=== PATIENT | male | born 1985 | race Two or more races ===

== ENCOUNTER 2020-04-12 09:18 | Outpatient (REF) | payer MEDICAID, SELFPAY | END 2020-04-12 09:19 | disposition home or self-care (01) | LOC: HO.LAB 09:18 | PROVIDERS: Visit Provider Internal Medicine | DX: Z20.828 Contact with and (suspected) exposure to other viral communicable diseases (principal) | CPT/HCPCS: C9803; U0003 ==

== ENCOUNTER 2020-05-10 06:43 | Outpatient (REF) | payer SELFPAY | END 2020-05-10 06:44 | disposition home or self-care (01) | LOC: HO.LAB 06:43 | PROVIDERS: Visit Provider Internal Medicine | DX: Z20.828 Contact with and (suspected) exposure to other viral communicable diseases (principal) | CPT/HCPCS: C9803; U0003 ==

== ENCOUNTER 2021-12-17 11:44 | Emergency (ER) | payer OTHER, SELFPAY ==
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
[2021-12-17 14:34] VITALS: BP 146/91; PULSE 72; RESP 18; TEMP 36.6; O2SAT 99; BMI 26.6
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
== END 2021-12-17 16:38 | disposition home or self-care (01) ==
PROVIDERS: Emergency Provider Emergency Medicine
DX: S39.012A Strain of muscle, fascia and tendon of lower back, initial encounter (principal); R07.89 Other chest pain; V43.52XA Car driver injured in collision with other type car in traffic accident, initial encounter; Y93.9 Activity, unspecified; Y92.410 Unspecified street and highway as the place of occurrence of the external cause; Y99.9 Unspecified external cause status; Z79.899 Other long term (current) drug therapy
CPT/HCPCS: 71046; 72100; 99283

== ENCOUNTER 2024-01-19 14:40 | Outpatient (AMB) | payer BC, SELFPAY ==
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
[2024-01-19 14:41] VITALS: BP 120/80; PULSE 86; O2SAT 98; BMI 27.3
== END 2024-01-19 15:20 | disposition home or self-care (01) ==
PROVIDERS: Visit Provider Physician Assistant
DX: T75.4XXA Electrocution, initial encounter (principal)
CPT/HCPCS: 93000; 99203

== ENCOUNTER → 2024-07-15 16:12 | Outpatient (BNVA) | payer BC, SELFPAY | PROVIDERS: PCP Internal Medicine | DX: J45.20 Mild intermittent asthma, uncomplicated (principal); F41.9 Anxiety disorder, unspecified; Z91.09 Other allergy status, other than to drugs and biological substances; Z28.21 Immunization not carried out because of patient refusal | CPT/HCPCS: 90471; 96127 ==

== ENCOUNTER 2024-07-28 09:55 | Outpatient (REF) | payer BC, SELFPAY ==
[2024-07-28 10:14] LABS: MANUAL DIFF FLAG NO
[2024-07-28 11:05] LABS: Basophils Absolute Auto 0.1 X10*3/uL (0.0-0.2); Basophils Percent Auto 0.8 % (0-2); Eosinophils Absolute Auto 0.2 X10*3/uL (0.0-0.4); Hematocrit 42.3 % (42.0-52.0); Hemoglobin 14.6 g/dl (14.0-18.0); Imm Gran Abs Auto 0.06 X10*3/uL (0.00-0.03); Imm Gran Pct Auto 0.8 % (0.0-0.4); Lymphocytes Absolute Auto 2.5 X10*3/uL (1.2-4.9); Lymphocytes Percent Auto 33.5 % (20-40); Mean Corpuscular HGB Conc 34.5 g/dl (31.0-36.0); Mean Corpuscular Hemoglobin 29.9 pg (27.0-33.0); Mean Corpuscular Volume 86.5 fL (80.0-98.0); Mean Platelet Volume 10.2 fL (9.4-12.4); Monocytes Absolute Auto 0.6 X10*3/uL (0.1-1.2); Monocytes Percent Auto 8.2 % (2-11); Neutrophils Percent Auto 53.7 % (45-73); Platelet Count 316 X10*3/uL (160-400); Red Blood Count 4.89 X10*6/uL (4.60-5.80); Red Cell Distribution Width 13.2 % (11.0-16.0); White Blood Count 7.4 X10*3/uL (4.8-10.8)
[2024-07-28 11:12] LABS: Appearance Urine Clear; Color Urine Yellow; Glucose Urine UA Negative (Negative); Leukocyte Esterase Urine Negative (Negative); Nitrite Urine Negative (Negative); Specific Gravity - Urine >= 1.030 (1.005-1.025); Urine Blood Negative (Negative); Urine Ketones Negative (Negative); Urine Protein Negative (Neg-Trace)
[2024-07-28 11:40] LABS: Alanine Aminotransferase 37 U/L (0-40); Albumin Level 4.9 g/dL (3.5-5.0); Alkaline Phosphatase 74 U/L (39-117); Anion Gap 13 (12-20); Aspartate Amino Transferase 29 U/L (5-37); Bilirubin Total 0.5 mg/dL (0.0-1.0); Blood Urea Nitrogen 17 mg/dL (9-16); Calcium 9.8 mg/dL (8.4-10.2); Carbon Dioxide 26 mmol/L (22-29); Chloride 106 mmol/L (96-108); Cholesterol 215 mg/dL (<200); Estimated Glomerular Filt Rate > 60; Glucose Fasting 96 mg/dL (60-99); HDL Cholesterol 42 mg/dL (>40); LDL Cholesterol Calculated 141 mg/dL (<100); Potassium 3.7 mmol/L (3.3-5.1); Sodium 141 mmol/L (135-145); Total Protein 8.9 g/dL (6.5-8.0); Triglycerides 161 mg/dL (<150)
[2024-07-28 11:59] LABS: TSH reflex Free T4 0.86 uIU/mL (0.32-4.0)
== END 2024-07-28 09:56 | disposition home or self-care (01) ==
LOC: HO.LAB 09:55
DX: Z00.00 Encounter for general adult medical examination without abnormal findings (principal); J45.909 Unspecified asthma, uncomplicated; Z91.09 Other allergy status, other than to drugs and biological substances; Z13.29 Encounter for screening for other suspected endocrine disorder; Z13.228 Encounter for screening for other metabolic disorders; Z13.220 Encounter for screening for lipoid disorders
CPT/HCPCS: 36415; 80053; 80061; 81003; 82306; 84443; 85025

== ENCOUNTER 2024-07-29 15:19 | Outpatient (AMB) | payer BC, SELFPAY ==
[2024-07-29 15:20] VITALS: BP 120/72; PULSE 78; O2SAT 97; BMI 27.5
--- NOTE | 2024-07-29 15:20 | A.OFFPC_ITS ---
Vital Signs 07/29/24 15:20 Height 5 ft 6 in Weight 170 lb 8 oz BMI 27.5 BP 120/72 Blood Pressure Location Lt brachial Position Sitting Pulse 78 Pulse Source Pulse Oximeter Pulse Oximetry (%) 97 Oxygen Delivery Method Room Air Intake Visit Reasons: annual exam Medical Registrar Required: No Accompanied by: Self / Same As Patient Allergies SEASONAL ALLERGIES Allergy (Intermediate, Uncoded 08/01/24 10:37) RASH Tobacco use date assessed: 07/29/24 Dental Screening Dental Screen Date: 07/29/24 Did you have a dental visit in the last 12 months?: No Did you have a dental problem in the last 6 months where you did not have access to dental care?: No Was dental information given to patient?: Patient has dentist HPI annual exam HPI Details Dentist: not in a while Eye: not in a while Snellen: Right: Left: Corrected vision: glasses STI screening: Colonoscopy:n/a Pap Smer:n/a PHQ-9:n/a Flu: declines COVID:declines Tdap: up to date Diet: regular Exercise: planning on starting back. Reports having a gym membership that he is not using The patient is a 39-year-old male who was presenting for an annual evaluation Recent labs completed-here to discuss results Reports that he is doing well. He denies shortness of breath, chest pain, heart palpitation, or dizziness He denies abdominal pain or change in bowel habits He denies any urinary symptoms [facility] Medical History (Updated 07/29/24 @ 16:21 by CHET Sarabia) Electrical shock of hand Asthma Environmental allergies Family History Brother Asthma Sister Asthma Mother Asthma Social History Housing: Apartment Patient Tobacco Use Status: Former Tobacco user e-Cigarette/Vaping Use: Former Use Date or number of years quit: 4 months ago service: No Current occupational status: employed Cognitive needs: No Hearing needs: No Vision needs: No Questionnaire PHQ-9 Over the last 2 weeks, how often have you been bothered by any of the following problems? 1. Little interest or pleasure in doing things: not at all 2. Feeling down, depressed, or hopeless: not at all 3. Trouble falling or staying asleep, or sleeping too much: not at all 4. Feeling tired or having little energy: not at all 5. Poor appetite or overeating: not at all 6. Feeling bad about yourself - or that you are a failure or have let yourself or your family down: not at all 7. Trouble concentrating on things, such as reading the newspaper or watching television: not at all 8. Moving or speaking so slowly that other people could have noticed. Or the opposite - being so fidgety or restless that you have been moving around a lot more than usual: not at all 9. Thoughts that you would be better off or of hurting yourself in some way: not at all Total score: 0 Depression Screening Interpretation: Negative Depression Screening Done: Yes 22428 - PHQ-9 Billing: Yes Source: Developed by Drs. Rik Elizabeth, Batsheva Meza, Calvin Patel and colleagues, with an educational jessica from [employer]. Thrive Questionnaire Date Thrive assessed: 07/29/24 I am a: Patient What is your living situation today?: I have a steady place to live Within the past 12 months, did the food you bought not last and you didn't have the money to get more?: Never true Within the past 12 months, did you worry whether your food would run out before you got money to buy more?: Never true Do you have trouble paying for medicines?: I choose not to answer this question Do you have trouble getting transportation to medical appointments?: No Do you have trouble paying your heating and electricity bill?: No Do you have trouble taking care of your child, family member or friend?: No Do you have trouble with day-to-day activities such as bathing, preparing meals, shopping, managing finances, etc.?: No Are you currently unemployed and looking for a job?: No Are you interested in more education?: I choose not to answer this question Please select the resources that you would like help with: None Currently or been in a relationship where the following occur: No concerns reported THRIVE Score: 0 AUDIT C Alcohol Use Questionnaire (AUDIT-C) 1. How often do you have a drink containing alcohol?: 2-4 times a month 2. How many drinks containing alcohol do you have on a typical day when you are drinking?: 3 or 4 3. How often do you have six or more drinks on one occasion?: Monthly Total Score: 5 Score Reviewed/Action Taken: Yes VIVIANA-7 AMB Questionnaire VIVIANA-7 Date VIVIANA - 7 assessed: 07/29/24 Feeling nervous, anxious, or on edge: 2 = More than half the days Not being able to stop or control worryin = Not at all Worrying too much about different things: 1 = Several days Trouble relaxin = Not at all Being so restless that it is hard to sit still: 1 = Several days Becoming easily annoyed or irritable: 1 = Several days Feeling afraid as if something awful might happen: 0 = Not at all Total VIVIANA-7 score (0-4 normal; 5-9 mild; 10-14 moderate; 15-21 severe): 5 Source: Developed by Drs. Rik Elizabeth, Batsheva Meza, Calvin Patel and colleagues, with an educational jessica from [employer]. VIVIANA-7 Assessment Billing VIVIANA-7 Assessment Tool: VIVIANA-7 Assessment 05268 Review of Systems Const Details: Denies chills, Denies fatigue, Denies fever(s), Denies headache(s) and Denies weakness HEENT Denies change in vision, Denies dizziness, Denies headache(s), Denies hearing loss, Denies nasal congestion, Denies sinus pain, Denies sinus pressure and Denies sore throat Card Denies chest pain, Denies lightheadedness, Denies dyspnea and Denies other (palpitations) Resp Denies cough, Denies dyspnea and Denies wheezing GI Denies abdominal pain, Denies melena, Denies hematochezia, Denies change in bowel habits, Denies dyspepsia and Denies nausea Denies hematuria and Denies dysuria Musc Denies abnormal gait, Denies myalgias, Denies arthralgias, Denies numbness and Denies tingling Skin/Breast Denies rash, Denies unusual bruising and Denies wounds Neuro Denies abnormal gait, Denies dizziness, Denies headache(s), Denies memory loss, Denies numbness, Denies Sensory deficit (Neuro), Denies tingling and Denies weakness Psych Denies anxiety, Denies depression and Denies memory loss Endo Denies cold intolerance, Denies fatigue, Denies heat intolerance, Denies polydipsia and Denies polyuria Anatoly/Lymph Denies easy bleeding and Denies easy bruising Aller/Immun Denies wheezing Physical exam (Primary Care) Vital Signs: Last Vital Signs Pulse 78 07/29/24 15:20 BP 120/72 07/29/24 15:20 Pulse Ox 97 07/29/24 15:20 Oxygen Delivery Method Room Air 07/29/24 15:20 BMI result Body Mass Index 27.5 Tobacco/Smoking Status: Tobacco use Status Tobacco use date assessed 07/29/24 07/29/24 15:24 Patient Tobacco Use Status Former Tobacco user 07/29/24 15:24 e-Cigarette/Vaping Use Former Use 07/29/24 15:24 PHQ-9: PHQ-9 Score PHQ-9: Total score 0 07/29/24 16:22 Depression Screening Interpretation: Negative Thrive Assessment: Date of Thrive Assessment Date Thrive assessed 07/29/24 07/29/24 15:24 Currently or been in a relationship where the following occur: No concerns reported Const Other: General: no acute distress, well developed, alert and awake Nutritional Appearance: well nourished Orientation/consciousness: patient oriented x3 HENMT Head: Yes normocephalic and Yes atraumatic Ears: hearing grossly normal bilaterally and TM's normal bilaterally General nose exam: Normal external nose present and Normal nares present Mouth: Normal oral and palatal mucosa present and moist mucous membranes Teeth and gingiva: dentition normal Throat: Yes oropharynx normal Eyes Pupils: Equal, round and reactive pupils present and Pupil accommodation reflex normal EOM: EOMs intact bilaterally Neck Neck: Yes normal visual inspection, Yes no lymphadenopathy and Yes trachea midline Thyroid: Thyroid normal Carotids: no bruits Lymphatic: no lymphadenopathy noted Chest Chest palpation & inspection: normal inspection of the chest Resp Effort & Inspection: normal respiratory effort Auscultation: clear to auscultation bilaterally Cardio Rate: regular rate Rhythm: regular rhythm Heart sounds: S1 normal heart sound present, S2 normal heart sound present, no gallops, no murmurs and no rubs Bruits: no abdominal aortic bruits and no carotid bruits GI Palpation (GI): No Abdominal aortic bruit present, Soft to palpation, nontender, No hepatosplenomegaly present and No Rebound tenderness present Auscultation: normal bowel sounds General: Yes no CVA tenderness Back/Spine/Pelvis Back: no CVA tenderness Cervical Spine: cervical ROM normal and No Cervical spine tenderness Thoracic/Lumbar Spine: thoraco-lumbar ROM normal, No pain with thoraco-lumbar ROM, No thoracic spinal tenderness and No lumbar spinal tenderness Skin General: warm and dry. Normal skin color. Normal skin turgor Lesions: no lesions Rashes: no rashes Trauma: no lacerations or abrasions Wounds: no wounds Nails: normal Neuro General: patient oriented x3, gait normal and CN's II-XI intact bilaterally Cranial nerves: Yes Equal, round and reactive pupils present Cognition (Neuro): normal cognition Gait exam (Neuro): Normal gait present Motor exam (neuro): 5/5 motor strength present throughout Sensory Exam: No Sensory deficit (Neuro) Deep tendon reflexes (DTR's): Right patellar reflex intensity grade: 2+ and Left patellar reflex intensity grade: 2+ Extrem General: Yes normal to inspection, No edema and No calf tenderness Psych Appearance: grossly normal Affect: normal affect Attitude: cooperative Thought process: Normal thought process present Results Reviewed Results Reviewed: Laboratory Tests 07/28/24 10:13 WBC 7.4 RBC 4.89 Hgb 14.6 Hct 42.3 Plt Count 316 Sodium 141 Potassium 3.7 Chloride 106 Carbon Dioxide 26 BUN 17 H Creatinine 0.84 Estimated GFR > 60 Fasting Glucose 96 AST 29 ALT 37 Triglycerides 161 H Cholesterol 215 H LDL Cholesterol, Calc 141 H HDL Cholesterol 42 25-OH Vitamin D Total 30.0 TSH 0.86 Coding Level of Care Code Est Pt Prev Care 18-39y(71140) Diagnoses Annual physical exam Z00.00 Environmental allergies Z91.09 Intermittent asthma, unspecified asthma severity, unspecified whether complicated J45.20 Asthma severity: unspecified severity Asthma persistence: intermittent Asthma complication type: unspecified Anxiety F41.9 Elevated cholesterol with elevated triglycerides E78.2 Additional Codes VIVIANA-7 Assessment Billing - VIVIANA-7 Assessment Tool: VIVIANA-7 Assessment 43200 ([id number]) PHQ-9 - 74002 - PHQ-9 Billing: Yes ([id number]) Time Spent (min) 33 Assessment & Plan Assessment & Plan (1) Annual physical exam: Code(s): Z00.00 - Encounter for general adult medical examination without abnormal findings Category: Medical Plan: Reviewed labs in preventative measures with patient (2) Environmental allergies: Code(s): Z91.09 - Other allergy status, other than to drugs and biological substances Category: Medical Plan: report he had got testing by an inside account executive that showed that he is allergic to a lot of different s they in the environment Reports that only [employer] worked for him so far, he reports developing skin rashes when his symptoms are extreme reports that he was given an option to get injections from his allergy, but decided against it (3) Asthma: Code(s): J45.909 - Unspecified asthma, uncomplicated Category: Medical Qualifiers: Asthma severity: unspecified severity Asthma persistence: intermittent Asthma complication type: unspecified Qualified Code(s): J45.20 - Mild intermittent asthma, uncomplicated Plan: reports using rescue inhaler as needed at night time, couple months ago, he started vaping and this triggered his asthma and he was using the rescue inhaler more often so he stopped vaping with positive effects (4) Anxiety: Code(s): F41.9 - Anxiety disorder, unspecified Category: Medical Plan: He reports anxiety, but was not diagnosed. situational anxiety, reports that when he is in bigger crowds he gets anxious, reports that he over think things and stress himself out sometimes reports that he talks to one of his closest friends and he feels like he is ok right now. Denies panic attacks. Denies si/hi (5) Elevated cholesterol with elevated triglycerides: Code(s): E78.2 - Mixed hyperlipidemia Category: Medical Plan: t 215/ldd 141/ tri 161/ hdl 42 Discussed with the patient about his elevated cholesterol levels. Explained to the patient that his LDL is at the level where treatment is warranted. The patient reports that he does not like medications and will rather to make dietary modifications and start exercising again. Lipid panel ordered for the patient to do in 3 months Plan The patient to follow in 3 months for elevated cholesterol monitoring Orders: Orders Lipid Panel 3 Months E78.2 - Mixed hyperlipidemia UA CC w/rflx Micro + Cult 3 Months E78.2 - Mixed hyperlipidemia
== END 2024-07-29 16:31 | disposition home or self-care (01) ==
DX: Z00.00 Encounter for general adult medical examination without abnormal findings (principal); Z91.09 Other allergy status, other than to drugs and biological substances; J45.20 Mild intermittent asthma, uncomplicated; F41.9 Anxiety disorder, unspecified; E78.2 Mixed hyperlipidemia

== ENCOUNTER → 2024-07-29 15:19 | Outpatient (BNVA) | payer BC, SELFPAY | DX: Z00.00 Encounter for general adult medical examination without abnormal findings (principal); J45.20 Mild intermittent asthma, uncomplicated; F41.9 Anxiety disorder, unspecified; E78.2 Mixed hyperlipidemia; Z91.09 Other allergy status, other than to drugs and biological substances | CPT/HCPCS: 96127 ==

== ENCOUNTER 2024-10-26 15:38 | Outpatient (AMB) | payer BC, SELFPAY ==
[2024-10-26 15:55] VITALS: BP 140/106; PULSE 78; RESP 18; TEMP 37.2; O2SAT 98; BMI 26.8
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
== END 2024-10-26 17:44 | disposition home or self-care (01) ==
LOC: HO.HMCH 15:39
DX: E78.2 Mixed hyperlipidemia (principal); F41.9 Anxiety disorder, unspecified; Z91.09 Other allergy status, other than to drugs and biological substances; J45.20 Mild intermittent asthma, uncomplicated; I10 Essential (primary) hypertension

== ENCOUNTER → 2024-10-26 15:38 | Outpatient (BNVA) | payer BC, SELFPAY | DX: E78.2 Mixed hyperlipidemia (principal); F41.9 Anxiety disorder, unspecified; I10 Essential (primary) hypertension; J45.20 Mild intermittent asthma, uncomplicated; Z91.09 Other allergy status, other than to drugs and biological substances | CPT/HCPCS: 96127; 96160 ==

== ENCOUNTER 2025-05-11 15:20 | Outpatient (AMB) | payer BC, SELFPAY ==
[2025-05-11 15:30] VITALS: BP 144/88; PULSE 88; RESP 18; O2SAT 98; BMI 27.2
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
[2025-05-11 15:48] VITALS: BP 150/94
== END 2025-05-11 16:50 | disposition home or self-care (01) ==
LOC: HO.HMCH 15:21
DX: F41.9 Anxiety disorder, unspecified (principal); F32.A Depression, unspecified; I10 Essential (primary) hypertension; J45.20 Mild intermittent asthma, uncomplicated; E78.5 Hyperlipidemia, unspecified; G47.00 Insomnia, unspecified